=== PATIENT | female | born 1990 | race Caucasian/White ===

== ENCOUNTER 2020-03-22 06:38 | Inpatient (IN) ==
[2020-03-22] MEDS ORDERED: LACTATED RINGER'S 1,000 ML IV SCH (06:45)
[2020-03-22] MEDS ORDERED: GENTAMICIN CONSULT ACTIVE PRN (06:54)
[2020-03-22] MEDS ORDERED: CLINDAMYCIN 900 MG in DEXTROSE 5% 50 ML IV ONE (06:54)
[2020-03-22] MEDS ORDERED: GENTAMICIN SULFATE 150 MG in DEXTROSE 5% 100 ML IV SCH (07:00)
[2020-03-22] MEDS ORDERED: CITRIC ACID/SODIUM CITRATE 15 ML UDC PO ONE (07:00)
[2020-03-22 07:12] LABS: Basophils # (auto) 0.04 K/uL (0-0.2); Basophils % (auto) 0.4 %; Eosinophils % (auto) 2.8 %; Hematocrit (blood only) 33.3 % (37-47); Hemoglobin 10.7 g/dL (12.0-16.0); Immature Granulocytes # (auto) 0.09 K/uL (0.00-0.02); Immature Granulocytes % (auto) 0.8 %; Lymphocytes # (auto) 3.01 K/uL (1.2-3.4); Lymphocytes % (auto) 27.8 %; Mean Corpuscular Hemoglobin 28.7 pg (25-34); Mean Corpuscular Volume 89.3 fL (80-100); Mean Platelet Volume 10.3 fL (7.4-10.4); Monocytes # (auto) 0.83 K/uL (0.11-0.59); Monocytes % (auto) 7.7 %; Neutrophils # (auto) 6.57 K/uL (1.4-6.5); Neutrophils % (auto) 60.5 %; Platelet Count 245 K/uL (130-400); RDW Coefficient of Variation 13.6 % (11.5-14.5); RDW Standard Deviation 44.6 fL (36.4-46.3); Red Blood Count 3.73 M/uL (4.2-5.4); White Blood Count 10.84 K/uL (4.8-10.8)
--- NOTE | 2020-03-22 07:20 | Anesthesiology Consultation ---
Date of Service March 22, 2020 Assessment & Plan Chart Review Chart Review: Acceptable Risk for Surgery and Patient NOT seen in Pre Admission Testing Consults Requested none ASA ASA3 Proposed Anesthesia Anesthesia Type: Spinal Risk / Benefits Reviewed With: PT / POA / Parent / Guardian, Accepts Plan and Informed Consent Obtained History Surgery Operation Date: 03/22/20 08:30 Proposed Procedures p Section in LD, Tubal Ligation - Ramon Bermudez MD Height/Weight Height: 5 ft 8 in Weight: 97.522 kg Allergies Allergy/AdvReac Type Severity Reaction Status Date / Time Penicillins Allergy Severe Rash,swelling Verified 11/18/18 18:10 of throat amoxicillin Allergy Intermediate Rash,swelling Verified 11/18/18 18:10 of throat clavulanic acid Allergy Intermediate Rash,swelling Verified 11/18/18 18:10 of throat Medications Home Medications Medication Instructions Recorded Confirmed Last Taken albuterol sulfate [Ventolin HFA] 2 puff INHALATION Q6H PRN 11/18/18 11/18/18 Unknown etonogestrel-ethinyl estradiol 1 vag ring VAGINAL DIRECTED 11/18/18 11/18/18 Unknown [NuvaRing] ranitidine HCl [Zantac] 150 mg PO BID #60 tab 11/18/18 Unknown NPO Date Last Intake of Fluids: 03/22/20 Time Last Intake of Fluids: 06:00 Date Last Intake of Solids: 03/21/20 Time Last Intake of Solids: 22:00 Past Medical History Medical History Nausea, vomiting, and diarrhea Nausea, vomiting, and diarrhea Normal labor and delivery Prolonged spontaneous rupture of membranes (02/01/14) Second trimester Exercise / Class Metabolic Activity II 4-5 Yardwork/Stairs/Walk up hill Past Family History Family History Other No pertinent family history in first degree relatives Past Anesthesia History No Hx of Anesthesia Complications and No Family Hx of Anesthesia Complications History of PONV No Hx of PONV and No Hx of Motion Sickness Social History Smoking Status: Current every day smoker Physical Exam Constitutional + obese ENMT Mouth: no dentition abnormality Thyromental Distance: < 3.5 Finger Breadths Mallampati Class: II Neck normal visual inspection and trachea midline; neck extension not limited Respiratory normal respiratory effort Auscultation: lungs clear to auscultation bilaterally Cardiovascular Rate/Rhythm: regular rate and regular rhythm Heart Sounds: no murmur Vessels: no carotid bruit Musculoskeletal Spine: lumbar spine normal to inspection Neurologic moves all extremities Motor/Sensory: no sensory deficit Psychiatric Orientation: alert and oriented x 3 Testing Laboratory Results 03/22/20 07:00
[2020-03-22 07:21] LABS: Mean Corpuscular Hgb Conc 32.1 g/dL (32-36)
[2020-03-22] MEDS ORDERED: INFLUENZA VIRUS QUAD VACCINE 0.5 ML SYR IM ONE (07:54)
[2020-03-22] MEDS ORDERED: INFLUENZA ADMINISTRATION CHARGE ONE (07:54)
[2020-03-22] MEDS ORDERED: OXYTOCIN 10 UNITS/ML VIAL ONE ×3 (08:20→10:07)
[2020-03-22] MEDS ORDERED: fentaNYL citrate 100 MCG/2 ML VIAL ONE ×2 (08:21→10:04)
[2020-03-22] MEDS ORDERED: MoRPHine SULFATE PF 1 MG/ML 10 ML AMP/VIAL ONE (08:22)
--- NOTE | 2020-03-22 08:57 | History & Physical Bridge Note ---
Date of Service March 22, 2020 History & Physical Bridge Note I have examined the patient, reviewed the History & Physical and in the interval since the performance of the History & Physical I have noted the following changes of clinical significance: no changes noted
[2020-03-22] MEDS ORDERED: METHYLERGONOVINE MALEATE 0.2 MG/ML AMP ONE (09:39)
[2020-03-22] MEDS ORDERED: MIDAZOLAM HCL 1 MG/ML 2ML VIAL ONE (10:03)
[2020-03-22] MEDS ORDERED: miSOPROStoL 200 MCG TAB ONE (10:34)
[2020-03-22] MEDS ORDERED: ePHEDrine sulfate 50 MG/ML SYR ONE (10:42)
[2020-03-22] MEDS ORDERED: PHENYLEPHRINE 100MCG/ML 5ML SYR ONE (10:42)
[2020-03-22] MEDS ORDERED: NALOXONE HCL 0.08 MG in SYRINGE 1.8 ML IV PRN (10:47)
[2020-03-22] MEDS ORDERED: LACTATED RINGER'S 500 ML IV PRN (10:47)
[2020-03-22] MEDS ORDERED: MoRPHine SULFATE PF 1 MG/ML 10 ML AMP/VIAL INT SPINAL ONE (10:47)
[2020-03-22] MEDS ORDERED: NALOXONE HCL 0.4 MG/1 ML VIAL/CARP IV PRN (10:47)
[2020-03-22] MEDS ORDERED: NALOXONE HCL 1 MG in SODIUM CHLORIDE 0.9% 1000ML 1,000 ML IV PRN (10:47)
[2020-03-22] MEDS ORDERED: ONDANSETRON INJ 2 MG/ML 2 ML VIAL IV PRN (10:47)
[2020-03-22] MEDS ORDERED: diphenhydrAMINE 50 MG/ML VIAL IV PRN (10:47)
[2020-03-22] MEDS ORDERED: PROMETHAZINE HCL 25 MG in SODIUM CHLORIDE 0.9% 50 ML IV PRN (10:47)
[2020-03-22] MEDS ORDERED: diphenhydrAMINE 50 MG/ML VIAL ONE (10:54)
[2020-03-22] MEDS ORDERED: KETOROLAC 30 MG/ML VIAL ONE (10:55)
[2020-03-22] MEDS: KETOROLAC 30 MG/ML VIAL IV PRN ×2 (10:57→22:31)
[2020-03-22] MEDS ORDERED: NO NARCOTICS OR SEDATIVES SCH (11:00)
[2020-03-22] MEDS ORDERED: SODIUM CHLORIDE 0.9% 1000ML 1,000 ML IV SCH (11:00)
[2020-03-22] MEDS ORDERED: DC INTRASPINAL MORPHINE SCH (11:00)
[2020-03-22] MEDS ORDERED: miSOPROStoL 200 MCG TAB PR ONE (11:37)
[2020-03-22] MEDS ORDERED: OXYTOCIN 10 UNITS/ML VIAL IM ONE (11:37)
[2020-03-22] MEDS ORDERED: SENNA 8.6 MG TAB PO PRN (11:39)
[2020-03-22] MEDS ORDERED: BENZOCAINE 20% AER SPR 82.5 GM CAN EXT PRN (11:39)
[2020-03-22] MEDS ORDERED: MAGNESIUM HYDROXIDE SUSP 30 ML UDC PO PRN (11:39)
[2020-03-22] MEDS ORDERED: SUPERCREAM 0.870% 15 GM JAR EXT PRN (11:39)
[2020-03-22] MEDS ORDERED: HYDROCORTISONE ACETATE 25 MG SUPP PR PRN (11:39)
--- NOTE | 2020-03-22 11:39 | Post Operative Brief Note ---
Immediate Post Op Note v1 Date of Surgery March 22, 2020 Pre & Post Diagnosis Operation Date: 03/22/20 08:30 Pre-Op Diagnosis: at term. Twins. Breech, breech presentation. Post-Op Diagnosis: at term. Twins. Breech, breech presentation. I identified the patient and participated in the time-out.: Yes Procedure Operation Date: 03/22/20 08:30 Actual Procedures p Section in LD(Bilateral) - Ramon Bermudez MD Surgeon Ramon Bermudez MD Veneer Stacker autumn. kailee Estimated Blood Loss 1,000 Findings Consistent with Post-Op Diagnosis Drains Argueta Catheter (Inserted after spinal anesthesia, clear yellow urine return)
[2020-03-22 12:31] LABS: Amphetamines+Metham, Urine Neg (Neg); Barbiturates, Urine Neg (Neg); Benzodiazepine, Urine Neg (Neg); Cocaine, Urine Neg (Neg); MDMA (Ecstacy), Urine Neg (Neg); Methadone, Urine Neg (Neg); Opiate, Urine Neg (Neg); Phencyclidine, Urine Neg (Neg)
--- NOTE | 2020-03-22 12:34 | Anesthesiology Progress Note ---
Date of Service March 22, 2020 Anesthesia Post Procedure Vital Signs Vital Signs: Temp Pulse Pulse Resp BP BP Pulse Ox 03/22/20 12:32 71 96 03/22/20 12:28 75 121/76 03/22/20 12:27 74 95 03/22/20 12:22 77 95 03/22/20 12:20 80 18 116/80 03/22/20 12:19 79 89 L 03/22/20 12:18 80 116/80 03/22/20 12:17 78 97 03/22/20 12:12 77 96 03/22/20 12:08 75 18 119/80 03/22/20 12:07 78 96 03/22/20 12:02 75 96 03/22/20 11:57 74 97 03/22/20 11:55 81 18 121/74 95 03/22/20 11:52 81 95 03/22/20 11:50 76 18 121/74 96 03/22/20 11:48 76 121/74 03/22/20 11:47 76 98 03/22/20 11:42 73 96 03/22/20 11:40 85 18 03/22/20 11:38 85 116/71 03/22/20 11:37 84 96 03/22/20 11:32 75 97 03/22/20 11:30 84 18 113/56 L 96 03/22/20 11:28 74 113/56 L 03/22/20 11:27 77 97 03/22/20 11:22 83 97 03/22/20 11:20 75 18 152/56 H 97 03/22/20 11:19 67 152/56 H 03/22/20 11:17 69 92 03/22/20 11:12 75 97 03/22/20 11:10 75 18 97 03/22/20 11:07 75 96 03/22/20 11:02 71 97 03/22/20 11:00 74 18 113/56 L 03/22/20 10:58 70 108/62 03/22/20 10:57 76 97 03/22/20 10:52 73 98 03/22/20 10:50 36.4 C L 83 80 18 108/74 97 03/22/20 10:49 74 108/52 L 93 03/22/20 10:47 71 99 03/22/20 08:08 79 18 124/71 03/22/20 07:37 79 124/71 03/22/20 07:26 36.6 C 18 03/22/20 07:21 18 Pain Intensity Upper Abdomen: Pain Intensity: 5 Transfer of Care Handoff Completed per policy Notes Mental Status: alert / awake / arousable Patient Amnestic to Procedure: Yes Nausea / Vomiting: adequately controlled Pain: adequately controlled Airway Patency, RR, SpO2: stable & adequate BP & HR: stable & adequate Hydration State: stable & adequate Neuraxial Anesthesia: was administered and sensory block is resolving Anesthetic Complications: no major complications apparent
[2020-03-22] MEDS: SIMETHICONE 80 MG CHEW PO SCH ×3 (13:20→19:55)
--- NOTE | 2020-03-22 13:58 | Operative Report (OR) ---
DATE OF OPERATION: 03/22/2020 INDICATION FOR SURGERY: This is a 29-year-old 3, para 2 with twin . Infants were breech-breech. The patient also desired permanent sterilization. PREOPERATIVE DIAGNOSES: 1. at term. 2. Breech-breech twin presentation. 3. Requested permanent sterilization. POSTOPERATIVE DIAGNOSES: 1. at term. 2. Breech-breech twin presentation. 3. Requested permanent sterilization. SURGEON: Ramon Bermudez MD. STOCKROOM SELECTOR: Salma Mattson. FINDINGS: Breech-breech twin presentation. Uterus, tubes otherwise unremarkable. PROCEDURE: section and bilateral tubal ligation. ESTIMATED BLOOD LOSS: 1000 mL. INTRAVENOUS FLUIDS: 3000 mL. URINE OUTPUT: 300 mL of clear urine at the end of the procedure. COMPLICATIONS: None. DRAINS: Argueta catheter. PATHOLOGY: Placenta, left and right fallopian tube. DISPOSITION: Stable to recovery room. ANESTHESIA: Spinal. DESCRIPTION OF PROCEDURE: The patient was taken to the operating room where she was prepped and draped in normal sterile fashion after timeout was called. A Pfannenstiel incision was made and carried down to the fascia. Fascia was incised in the midline and extended laterally on both sides. Fascia was sharply dissected off the rectus abdominus muscle. Peritoneum was identified and entered sharply. Once inside the abdomen, an Edinson retractor was placed in the abdomen for retraction. A transverse incision was made on the lower segment of the uterus after the vesicouterine peritoneum was sharply dissected. Baby A was delivered in [place] breech presentation with no difficulty. Cord was clamped and cut. Amniotomy was performed on sac B and same procedure performed. The infant was delivered in [place] breech presentation without any difficulty. Cord blood was obtained from cord A and B and sent to pathology. Placenta was manually removed. Uterus was exteriorized and cleared of all clots and debris. Uterus was closed in 2 layers using Vicryl stitch. There was good hemostasis. Copious amount of irrigation used to irrigate the abdomen. Attention was paid to the tubal ligation part of the procedure. The left and right fallopian tubes were identified and followed to the fimbriated end by surgeon and internet marketing assistant. Modified [place] tubal ligation was performed on both tubes. The tubes were transected and sent to pathology for pathological analysis. There was good hemostasis. Uterus returned to the abdominal cavity. Once again, hemostasis was obtained. Peritoneum and rectus abdominus muscle approximated using plain suture. Vicryl stitch was used to close the fascia in a running fashion. Subcutaneous space was irrigated and closed with 2-0 plain suture. Skin was closed with 4-0 Monocryl. All instruments were removed from the abdomen including retractors, sponges and needles and accounted for x2. The patient is sent to recovery in stable condition. I attest to the content of the Intraoperative Record and any orders documented therein. Any exception s are noted below.
[2020-03-22] MEDS: OXYTOCIN 20 UNITS in LACTATED RINGER'S 1,000 ML IV SCH ×2 (15:06→19:55)
[2020-03-22] MEDS ORDERED: ACETAMINOPHEN 1,000 MG/100 ML VIAL IV STA (15:40)
[2020-03-22] MEDS: DOCUSATE SODIUM 100 MG CAP PO SCH (19:58)
[2020-03-23] MEDS: KETOROLAC 30 MG/ML VIAL IV PRN (04:20)
[2020-03-23] MEDS ORDERED: PROMETHAZINE HCL 25 MG in SODIUM CHLORIDE 0.9% 50 ML IV PRN (04:48)
[2020-03-23] MEDS ORDERED: diphenhydrAMINE 50 MG/ML VIAL IV PRN (04:48)
[2020-03-23] MEDS ORDERED: ONDANSETRON INJ 2 MG/ML 2 ML VIAL IV PRN (04:48)
[2020-03-23] MEDS ORDERED: diphenhydrAMINE Capsule 25 MG CAP PO PRN (04:48)
[2020-03-23] MEDS ORDERED: CITRIC ACID/SODIUM CITRATE 15 ML UDC PO SCH (06:00)
[2020-03-23 06:02] LABS: Basophils # (auto) 0.03 K/uL (0-0.2); Basophils % (auto) 0.2 %; Eosinophils # (auto) 0.24 K/uL (0-0.5); Eosinophils % (auto) 1.8 %; Hematocrit (blood only) 27.6 % (37-47); Hemoglobin 8.7 g/dL (12.0-16.0); Immature Granulocytes # (auto) 0.08 K/uL (0.00-0.02); Immature Granulocytes % (auto) 0.6 %; Lymphocytes # (auto) 1.71 K/uL (1.2-3.4); Lymphocytes % (auto) 12.7 %; Mean Corpuscular Hemoglobin 28.3 pg (25-34); Mean Corpuscular Hgb Conc 31.5 g/dL (32-36); Mean Corpuscular Volume 89.9 fL (80-100); Mean Platelet Volume 10.2 fL (7.4-10.4); Monocytes # (auto) 1.26 K/uL (0.11-0.59); Monocytes % (auto) 9.4 %; Neutrophils # (auto) 10.14 K/uL (1.4-6.5); Neutrophils % (auto) 75.3 %; Platelet Count 236 K/uL (130-400); RDW Coefficient of Variation 13.6 % (11.5-14.5); RDW Standard Deviation 44.5 fL (36.4-46.3); Red Blood Count 3.07 M/uL (4.2-5.4); White Blood Count 13.46 K/uL (4.8-10.8)
[2020-03-23] MEDS ORDERED: FERROUS SULFATE 325 MG TAB PO SCH (08:00)
[2020-03-23] MEDS: SIMETHICONE 80 MG CHEW PO SCH ×4 (08:18→20:36)
[2020-03-23] MEDS: DOCUSATE SODIUM 100 MG CAP PO SCH ×2 (08:18→20:36)
[2020-03-23] MEDS: PRENATAL VITAMIN 1 TAB PO SCH (08:18)
[2020-03-23] MEDS: oxyCODONE/ACETAMINOPHEN 5mg/325mg TAB PO PRN ×4 (08:19→20:37)
[2020-03-23] MEDS ORDERED: DIPHTHERIA/TETANUS/PERTUSSIS 0.5 ML SYR/VIAL IM ONE (09:00)
--- NOTE | 2020-03-23 09:24 | Obstetrical Progress Note ---
Date of Service March 23, 2020 Assessment & Plan Admission and Anticipated Discharge Date Admission Date: March 22, 2020 Subjective Patient is seen and examined. She feels well, no complaints. Pain is under control with oral meds. Ambulating without dizziness Voiding without difficulty Tolerating regular diet with out N&V Flatus BM neg Bleeding is minimal No fever/ chills/ CP/ SOB/ N&V/ Leg pain Bottle feeding without problems Vital Signs Temp Pulse Resp BP Pulse Ox 03/23/20 08:40 36.4 C L 77 18 121/77 97 03/23/20 04:20 36.6 C 75 16 99/65 L 98 03/23/20 01:40 15 96 03/23/20 00:40 16 97 03/22/20 23:40 36.7 C 79 17 98/62 L 97 03/22/20 22:31 20 96 03/22/20 21:36 18 98 Lab Results 03/22/20 03/22/20 03/22/20 Range/Units 07:00 07:00 Unknown WBC 10.84 H (4.8-10.8) K/uL RBC 3.73 L (4.2-5.4) M/uL Hgb 10.7 L (12.0-16.0) g/dL Hct 33.3 L (37-47) % MCV 89.3 (80-100) fL MCH 28.7 (25-34) pg MCHC 32.1 (32-36) g/dL RDW Std Deviation 44.6 (36.4-46.3) fL RDW Coeff of Rolanda 13.6 (11.5-14.5) % Plt Count 245 (130-400) K/uL MPV 10.3 (7.4-10.4) fL Immature Gran % (Auto) 0.8 % Neut % (Auto) 60.5 % Lymph % (Auto) 27.8 % Weston % (Auto) 7.7 % Eos % (Auto) 2.8 % Baso % (Auto) 0.4 % Neut # (Auto) 6.57 H (1.4-6.5) K/uL Lymph # (Auto) 3.01 (1.2-3.4) K/uL Weston # (Auto) 0.83 H (0.11-0.59) K/uL Eos # (Auto) 0.30 (0-0.5) K/uL Baso # (Auto) 0.04 (0-0.2) K/uL Immature Gran # (Auto) 0.09 H (0.00-0.02) K/uL Urine Opiates Screen Neg (Neg) Ur Methadone, Qual Neg (Neg) Urine Barbiturates Neg (Neg) Ur Phencyclidine (PCP) Neg (Neg) U Amphetamin/Meth Scrn Neg (Neg) MDMA (Ecstasy) Screen Neg (Neg) U Benzodiazepines Scrn Neg (Neg) Ur Cocaine Metabolite Neg (Neg) U Marijuana (THC) Screen Neg (Neg) Blood Type O Positive Antibody Screen NEGATIVE 03/23/20 Range/Units 05:49 WBC 13.46 H (4.8-10.8) K/uL RBC 3.07 L (4.2-5.4) M/uL Hgb 8.7 L (12.0-16.0) g/dL Hct 27.6 L (37-47) % MCV 89.9 (80-100) fL MCH 28.3 (25-34) pg MCHC 31.5 L (32-36) g/dL RDW Std Deviation 44.5 (36.4-46.3) fL RDW Coeff of Rolanda 13.6 (11.5-14.5) % Plt Count 236 (130-400) K/uL MPV 10.2 (7.4-10.4) fL Immature Gran % (Auto) 0.6 % Neut % (Auto) 75.3 % Lymph % (Auto) 12.7 % Weston % (Auto) 9.4 % Eos % (Auto) 1.8 % Baso % (Auto) 0.2 % Neut # (Auto) 10.14 H (1.4-6.5) K/uL Lymph # (Auto) 1.71 (1.2-3.4) K/uL Weston # (Auto) 1.26 H (0.11-0.59) K/uL Eos # (Auto) 0.24 (0-0.5) K/uL Baso # (Auto) 0.03 (0-0.2) K/uL Immature Gran # (Auto) 0.08 H (0.00-0.02) K/uL Urine Opiates Screen (Neg) Ur Methadone, Qual (Neg) Urine Barbiturates (Neg) Ur Phencyclidine (PCP) (Neg) U Amphetamin/Meth Scrn (Neg) MDMA (Ecstasy) Screen (Neg) U Benzodiazepines Scrn (Neg) Ur Cocaine Metabolite (Neg) U Marijuana (THC) Screen (Neg) Blood Type Antibody Screen PE: General: Alert, orientedx3, NAD CVS: S1S2 RRR Lungs; CTAB Abd: soft, NT, ND, BS+, fundus firm, below Umbilicus Incision: Clean, dry, intact Perineum intact, Lochia rubra minimal Ext; NT, no edema AP: 29 yo s/p Primary C Section and BTL, pod# 1 VSS Afebrile doing well Continue routine postop care Encourage ambulation, PO intake All questions were answered Results & Data ([facility]) Vital Signs (Past 12 Hours) Vital Signs Temp Pulse Resp BP Pulse Ox 03/23/20 08:40 36.4 C L 77 18 121/77 97 03/23/20 04:20 36.6 C 75 16 99/65 L 98 03/23/20 01:40 15 96 03/23/20 00:40 16 97 03/22/20 23:40 36.7 C 79 17 98/62 L 97 03/22/20 22:31 20 96 03/22/20 21:36 18 98
[2020-03-23] MEDS: IBUPROFEN 600 MG TAB PO PRN ×3 (12:02→20:36)
[2020-03-23] MEDS ORDERED: bisacodyL 5 MG TABEC PO SCH (20:00)
[2020-03-24] MEDS: oxyCODONE/ACETAMINOPHEN 5mg/325mg TAB PO PRN ×3 (00:45→08:45)
[2020-03-24] MEDS: IBUPROFEN 600 MG TAB PO PRN ×3 (00:46→08:44)
[2020-03-24 06:43] LABS: Hematocrit (blood only) 22.8 % (37-47); Hemoglobin 7.4 g/dL (12.0-16.0)
[2020-03-24] MEDS: PRENATAL VITAMIN 1 TAB PO SCH (08:02)
[2020-03-24] MEDS: SIMETHICONE 80 MG CHEW PO SCH (08:02)
[2020-03-24] MEDS: DOCUSATE SODIUM 100 MG CAP PO SCH (08:03)
--- NOTE | 2020-03-24 10:58 | Surgery Progress Note ---
Date of Service March 24, 2020 Assessment & Plan Admission and Anticipated Discharge Date Admission Date: March 22, 2020 Subjective POD#2 stable wants to go home no SOB or dizziness while walking or OOB passing gas tolerating diet Physical Exam Constitutional: WD/WN, vitals as above comfortable incision clean dry and intact no edema neg Sienna's Results & Data ([facility]) Vital Signs (Past 12 Hours) Vital Signs Temp Pulse Resp BP Pulse Ox 03/24/20 10:35 36.7 C 83 20 131/80 99 03/24/20 07:50 36.7 C 83 20 131/80 03/24/20 00:30 36.5 C 82 17 120/75
[2020-03-24] MEDS ORDERED: bisacodyL 10 MG SUPP PR PRN (11:39)
[2020-03-25] MEDS ORDERED: ACETAMINOPHEN 500 MG TAB PO ONE (10:31)
--- NOTE | 2020-03-31 22:16 | Discharge Summary (DS) ---
INDICATION FOR SURGERY: This is a 29-year-old G3, P2 status post twin gestation at term, infants were breech-breech and the patient was scheduled to undergo section. CHIEF COMPLAINT: at term, twin gestation. Infants were breech-breech. HISTORY OF PRESENT ILLNESS: This is a 29-year-old G3, P2 at term with twin gestations, infants were breech. The patient was seen in the office, risks and benefits of vaginal delivery versus delivery were discussed with the patient. The patient agreed to undergo delivery. She presented at [facility] on 03/22/2020 and underwent a section with bilateral tubal ligation. Surgery was otherwise unremarkable. Details of surgery and pediatric information on the respective records. The patient did well postoperatively and on postop day #1, and 2 continued to improve, was able to ambulate, tolerate p.o. food and meds and was discharged home in stable condition on 03/24/2020. PAST MEDICAL HISTORY: The patient had no significant past medical history. PAST SURGICAL HISTORY: None. SOCIAL HISTORY: The patient was . Denied drug, tobacco or alcohol use. ALLERGIES: The patient has a reported ALLERGY TO PENICILLIN, AMOXICILLIN AND CLAVULANIC ACID. REVIEW OF SYSTEMS: Negative except as dictated in the HPI. PHYSICAL EXAMINATION: GENERAL: Well-developed, well-nourished white female in no acute distress. VITAL SIGNS: On 03/24/2020 showed blood pressure 131/80, pulse of 83, respiration of 20, temperature 36.7. HEART: S1, S2, regular rhythm and rate. LUNGS: Clear to auscultation bilaterally. ABDOMEN: Nontender, nondistended. Incision was clean, dry and intact. EXTREMITIES: No cyanosis, clubbing. +1 edema. LABS: On 03/23/2020 showed hemoglobin of 7.4, hematocrit of 32.8. CONDITION ON DISCHARGE: Stable. OPERATION: section for twin gestation with bilateral tubal ligation. DISCHARGE DIAGNOSES: Postop after section and bilateral tubal ligation. PLAN ON DISCHARGE: The patient is discharged home with instructions regarding activity, diet, followup appointment and medications.
== END 2020-03-24 11:55 | disposition home or self-care (01) | DRG 785 ==
LOC: 4S1 06:38 → EDSTATUS 10:05 → 4S2 13:10